=== PATIENT | male | born 1980 ===

== ENCOUNTER 2023-01-22 14:29 | Emergency (ER) | payer MEDICAID ==
[~2023-01-22] VITALS: Ht 190.5 cm; Wt 168.2 kg
[2023-01-22 14:34] VITALS: BP 131/73
[2023-01-22] MEDS ORDERED: MULT-660 PO (14:36)
[2023-01-22] MEDS ORDERED: METF-1211 PO ×2 (14:36→14:41)
[2023-01-22] MEDS ORDERED: LISI-894 PO (14:36)
[2023-01-22] MEDS ORDERED: TOPI200T16 PO (14:40)
[2023-01-22] MEDS ORDERED: EMPA25TA3 PO (14:40)
[2023-01-22] MEDS ORDERED: LISI-893 PO (14:41)
== END 2023-01-22 17:52 | disposition left against medical advice (07) ==
LOC: EMS 14:32
DX: S61.211A Laceration without foreign body of left index finger without damage to nail, initial encounter (principal); Z53.21 Procedure and treatment not carried out due to patient leaving prior to being seen by health care provider; W26.8XXA Contact with other sharp object(s), not elsewhere classified, initial encounter; Y93.89 Activity, other specified; Y92.89 Other specified places as the place of occurrence of the external cause; Y99.8 Other external cause status
CPT/HCPCS: 99281; Z7502